=== PATIENT | male | born 1940 | race Caucasian/White ===

== ENCOUNTER → 2018-01-03 | Outpatient (CLI) | payer MEDICARE, OTHER ==
--- NOTE | 2018-01-03 10:35 | CT ---
EXAM DESCRIPTION: Abdomen/Pelvis w/o Contrast CLINICAL HISTORY: 77 years, Male, KIDNEY DISEASE COMPARISON: None. TECHNIQUE: CT of the abdomen and pelvis is performed according to our non contrast protocol. FINDINGS: The lung bases are clear. Heart size is normal. Streak artifacts obscure the upper abdominal viscera related to the arms present overlying the chest and upper abdomen. Small low-density lesion in the anterior aspect the liver near the junction of the right and left lobes with overlying capsular indentation is seen which measures 1.2 cm (axial image 17, series 2). Question vague low density area in the anterior medial segment left lobe on axial image 13 series 2. This is in this is uncertain however due to the presence of artifacts and the lack of IV contrast. Sono of the liver may be helpful for further evaluation. Spleen and pancreas are otherwise unremarkable. Adrenal glands appear normal. The right kidney is unremarkable. The left kidney is unremarkable. No renal stones or hydronephrosis. Enlarged retroperitoneal lymph nodes are present. Aortocaval node measures 1.2 cm short axis dimension. Left periaortic nodes are prominent as well with one node near the lower pole of the left kidney measuring 1 cm short axis dimension. Metastatic disease, lymphoproliferative disorder or granulomatous infection might be considered. Small bowel loops appear normal in caliber with normal wall thickness. There is no lymphadenopathy, inflammation, or free fluid observed. In the pelvis, the appendix is normal. No inflammation around the cecum or terminal ileum or sigmoid colon. There is extensive diverticulosis of the sigmoid colon. Prostate and distal ureters and bladder base are obscured by metal artifacts from bilateral hip prostheses. Few coarse calcifications in the prostate. Prostate is prominent 5 cm in transverse dimension. Rectal wall thickness is normal for degree of distention. No free fluid or mass in the pelvis. Bone window images show multiple small sclerotic and lucent lesions of the lower of the lumbar spine and pelvis suggesting osseous metastatic disease or possibly multiple myeloma. Findings are not typical of hyperparathyroidism. Correlate with other studies such as bone scan. No inguinal or lower pelvic adenopathy. Degenerative changes are seen in the lower L spine with spinal stenosis. Coronal and sagittal reformatted images confirm the findings. IMPRESSION: Mildly enlarged retroperitoneal lymph nodes with differential considerations given above. Multiple small lucent and sclerotic lesions in the lumbar spine and bony pelvis recent for metastatic disease. Question small liver lesions. Correlate with sono findings. This exam was performed according to our departmental dose-optimization program, which includes automated exposure control, adjustment of the mA and/or kV according to patient size and/or use of iterative reconstruction technique. Total DLP equals 1366.99 mGycm. Electronically signed by: Felipe Conte MD 01/03/2018 10:33 AM CDT
== END ==
LOC: CT 08:45
PROVIDERS: ATTEND Internal Medicine Nephrology
DX: N17.9 Acute kidney failure, unspecified (principal); R59.1 Generalized enlarged lymph nodes